=== PATIENT | male | born 1995 | race Caucasian/White ===

== ENCOUNTER 2024-06-16 09:43 | Emergency (ER) | payer SELFPAY ==
[~2024-06-16] VITALS: Ht 177.8 cm; Wt 100.0 kg
[2024-06-16 09:47] VITALS: O2SAT 97
[2024-06-16 10:34] LABS: BASOPHILS % 0.7 % (0.0-2.0); EOSINOPHILS % 0.5 % (0.0-5.0); HEMATOCRIT. 47.2 % (42.0-52.0); HEMOGLOBIN. 15.9 g/dL (14.0-18.0); LYMPHOCYTES % 21.2 % (20.0-50.0); MEAN CORPUSCULAR HEMOGLOBIN 29.2 pg (28.0-32.0); MEAN CORPUSCULAR HGB CONC 33.8 g/dL (31.0-37.0); MEAN CORPUSCULAR VOLUME 86.6 fL (80.0-94.0); MONOCYTES % 6.8 % (2.0-8.0); NEUTROPHILS % 70.8 % (40.0-76.0); PLATELET 298 x1000/uL (130-400); RED BLOOD CELL COUNT 5.45 mill/uL (4.7-6.1); RED CELL DISTRIBUTION WIDTH 13.2 % (11.6-14.6); WHITE BLOOD COUNT 6.5 x1000/uL (4.5-11.0)
[2024-06-16 10:44] LABS: CHLORIDE 103 mEq/L (98-107); POTASSIUM 3.7 mEq/L (3.5-5.1); SODIUM 137 mEq/L (136-145)
[2024-06-16 10:45] LABS: CALCIUM 9.5 mg/dL (8.7-10.4); CARBON DIOXIDE 25 mEq/L (21-32)
[2024-06-16 10:50] LABS: CREATININE 0.9 mg/dL (0.6-1.3); GLUCOSE 107 mg/dL (70-105); UREA NITROGEN BLOOD 8 mg/dL (9-23)
[2024-06-16 10:52] LABS: ALANINE AMINOTRANSFERASE 78 IU/L (10-49); ALBUMIN 4.8 g/dL (3.2-4.8); ASPARTATE AMINOTRANSFERASE 65 IU/L (<34); BILIRUBIN DIRECT 0.7 mg/dL (<=3.0); BILIRUBIN TOTAL 3.2 mg/dL (0.1-1.0); PROTEIN TOTAL 8.1 g/dL (6.0-8.3)
[2024-06-16] MEDS ORDERED: ONDA4TAB11 PO (11:35)
[2024-06-16] MEDS ORDERED: LOPE2CAP MT (11:35)
[2024-06-16 11:37] VITALS: BP 151/92; PULSE 88; RESP 16; TEMP 98.3; O2SAT 97
== END 2024-06-16 11:40 | disposition home or self-care (01) ==
LOC: ER 09:43
DX: A08.4 Viral intestinal infection, unspecified (principal)
CPT/HCPCS: 36415; 80048; 80076; 85025; 99283

== ENCOUNTER 2024-12-23 01:24 | Emergency (ER) | payer SELFPAY ==
[~2024-12-23] VITALS: Ht 177.8 cm; Wt 85.0 kg
[~2024-12-23 01:24] MED LIST: LOPE2CAP MT; ONDA-239 PO
[2024-12-23 01:36] VITALS: TEMP 36.9; O2SAT 100
[2024-12-23 03:25] VITALS: TEMP 98.5
[2024-12-23] MEDS: ACETAMINOPHEN 325MG TABLET PO ONE (03:25)
[2024-12-23] MEDS ORDERED: ACET-2708 MT (04:09)
[2024-12-23 04:21] VITALS: BP 144/97; PULSE 100; RESP 18; O2SAT 98
== END 2024-12-23 04:21 | disposition home or self-care (01) ==
LOC: ER 01:50
DX: R51.9 Headache, unspecified (principal)
CPT/HCPCS: 70450; 99284; Z7610; A4606